=== PATIENT | female | born 1965 | race Caucasian/White ===

== ENCOUNTER 2018-08-20 10:08 | Emergency (ER) | payer OTHER, MEDICAID ==
[2018-08-20] MEDS: LIDOCAINE 1% (MDV) 10 ML INJ INJ (12:35)
[2018-08-20] MEDS: LIDOCAINE 1% (MPF) 5 ML VIAL INJ (12:36)
== END 2018-08-20 14:25 | disposition home or self-care (01) ==
LOC: FTE 10:08
DX: L72.3 Sebaceous cyst (principal); I10 Essential (primary) hypertension
CPT/HCPCS: 10060; 99283-25

== ENCOUNTER 2019-02-24 11:27 | Emergency (ER) | payer OTHER ==
[2019-02-24 13:47] LABS: ADD UMIC YES; UR ASCORBIC ACID 20 mg/dL (NEGATIVE); UR BACTERIA FEW /HPF (NONE SEEN); UR BILIRUBIN (Dip) NEGATIVE (NEGATIVE); UR BLOOD (Dip) 2+ mg/dL (NEGATIVE); UR CLARITY SLIGHTLY CLOUDY (CLEAR); UR COLOR YELLOW (YELLOW); UR GLUCOSE (Dip) NEGATIVE (NEGATIVE); UR KETONES (Dip) NEGATIVE (NEGATIVE); UR LEUKOCYTE ESTERASE (Dip) 3+ Leu/ul (NEGATIVE); UR NITRITE (Dip) NEGATIVE (NEGATIVE); UR RBC 9 /HPF (0-5); UR SPECIFIC GRAVITY (Dip) 1.008 (1.003-1.030); UR SQUAMOUS EPITHELIAL CELL FEW /HPF (FEW); UR TOTAL PROTEIN (Dip) 2+ mg/dl (NEGATIVE); UR UROBILINOGEN (Dip) NEGATIVE (NEGATIVE); UR WBC > 182 /HPF (0-5)
[2019-02-24] MEDS: CEFTRIAXONE 1 GM INJ IM (14:40)
[2019-02-24] MEDS: LIDOCAINE 1% (MPF) 5 ML VIAL INFIL (14:41)
== END 2019-02-24 15:15 | disposition home or self-care (01) ==
LOC: FTE 11:27
DX: N39.0 Urinary tract infection, site not specified (principal); I10 Essential (primary) hypertension
CPT/HCPCS: 81001; 96372; 99284-25